=== PATIENT | female | born 1940 | race Caucasian/White ===

== ENCOUNTER → 2019-04-15 | Outpatient (CLI) | payer OTHER, MEDICARE ==
[~2019-04-15] MED LIST: ACCUNEB0.63 MG/3 INH; ACETAMINOPHEN325 M1 PO; ALBUTEROL2.5 MG/31 INH; APAP650 PO; DULERA 100 MCG/13 GM INH; DULERA 200 MCG/13 GM IH; EXCEDRIN CAPLE1 EACH PO; FISH OIL 1,0001 EAC5 PO; HYDROCODON-ACE1 EAC7 PO; L-THYROXINE PO; LISINOPRIL10 MG PO; MEDROLDOSEPACK PO; NEXIUM40 MG PO; NORCO 5-325 TA1 EACH PO; PLAVIX 75 MG TA75 M1 PO; PRINIVIL20 MG PO; SYNTHROID75 MCG PO; TUMS E.S.750 MG PO; TYLENOL EX-STR500 M2 PO; VITAMIN D 5050000 I1 PO
== END ==
LOC: RAD 12:59
DX: J44.1 Chronic obstructive pulmonary disease with (acute) exacerbation (principal); Z95.5 Presence of coronary angioplasty implant and graft